=== PATIENT | female | born 1940 | race Caucasian/White ===

== ENCOUNTER → 2024-06-16 | Day surgery (SDC) | payer OTHER ==
[2024-06-12 15:11] LABS: PH,URINE 5.5 (5.0-8.0); URINE APPEARANCE Clear; URINE BILIRRUBIN Negative (NEGATIVE); URINE BLOOD Moderate; URINE COLOR Yellow; URINE GLUCOSE Negative (NEGATIVE); URINE KETONE Trace (NEGATIVE); URINE LEUKOCYTE Negative; URINE NITRATE Negative; URINE PROTEIN Trace (NEGATIVE); URINE UROBILINOGEN 0.2 E.U./dl
[2024-06-12 15:11] LABS: HEMATOCRIT 40.7 % (36.0-45.00); HEMOGLOBIN 13.6 g/dL (12.0-15.00); MEAN CELL VOLUME 90.1 fL (80.00-100.00); MEAN CORPUSCULAR HEMOGLOBIN 30.2 pg (27.00-32.0); MEAN CORPUSCULAR HGB CONC 33.5 g/dl (32.0-36.0); PLATELET COUNT 235 K/uL (150-450); RED BLOOD COUNT 4.52 M/uL (4.00-6.00)
[2024-06-12 15:12] LABS: URINE BACTERIA 109.5 uL (0.0-1933); URINE EPITHELIAL CELLS 10.1 uL (0.0-38.8); URINE RBC 54.2 uL (0.0-20.8); URINE WBC 11.4 uL (0.0-23.2)
[2024-06-12 15:20] LABS: URINE CAST 0.45 uL (0.0-1.40)
[2024-06-12 15:27] LABS: INR 0.99; PARTIAL THROMBOPLASTIN TIME 25.4 SECONDS (22.0-34.0); PROTHROMBIN TIME 10.8 SECONDS (9.0-11.5)
[2024-06-12 15:36] VITALS: BP 150/75
[2024-06-12 15:37] LABS: ALBUMIN 3.7 gm/dL (3.4-5.0); BILIRUBIN TOTAL 0.93 mg/dL (0.3-1.2); CALCIUM 9.4 mg/dL (8.5-10.1); CHOL HDL RATIO 1.9 (0-5.0); CREATININE SERUM 0.6 mg/dL (0.55-1.02); GFR 95.24; GLOBULINA 3.5 G/DL (2.4-3.5); POTASSIUM 4.19 mEq/L (3.5-5.1); TOTAL PROTEIN 7.2 gm/dL (6.4-8.2)
[~2024-06-16] VITALS: Ht 154.9 cm; Wt 49.9 kg
[~2024-06-16] MED LIST: ADULT LOW DOSE81 M1 PO; ALEVE220 M1 PO; CEFAZOLIN SODIUM 1,000 MG VIAL IV ONE; DUI500 PO; LIPITOR20 MG PO; MORPHINE SULFATE 4 MG/ML VIAL IV ONE; NORVASC5 MG PO; PERCOCET 5-3251 EACH PO; TOPROL XL25 M1 PO
== END | disposition home or self-care (01) ==
LOC: CIR.AMB 07:20
PROVIDERS: ATTEND Orthopaedic Surgery
DX: S52.532A Colles' fracture of left radius, initial encounter for closed fracture (principal); S52.692A Other fracture of lower end of left ulna, initial encounter for closed fracture; M81.0 Age-related osteoporosis without current pathological fracture; I10 Essential (primary) hypertension; E78.5 Hyperlipidemia, unspecified; H52.10 Myopia, unspecified eye
CPT/HCPCS: 25609; 25652; 20902; 25101; L8699